=== PATIENT | female | born 1990 | race Caucasian/White ===

== ENCOUNTER 2018-03-06 18:23 | Emergency (ER) | payer BC, OTHER ==
[2018-03-06] MEDS ORDERED: IBUPROFEN 600 MG TAB PO ONE ×2 (19:11→19:12)
[2018-03-06] MEDS ORDERED: ACETAMINOPHEN 500 MG TAB ONE (19:11)
[2018-03-06] MEDS ORDERED: ACETAMINOPHEN 500 MG TAB PO ONE (19:12)
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
[2018-03-06 20:35] VITALS: BP 122/95
[2018-03-06] MEDS ORDERED: LIDOCAINE 4%/MENTHOL 1% PATCH TD ONE ×2 (20:53)
[2018-03-06] MEDS ORDERED: PATCH REMOVAL 1 EA PATCH TD SCH (21:00)
== END 2018-03-06 20:58 | disposition home or self-care (01) ==
DX: S09.90XA Unspecified injury of head, initial encounter (principal); S39.012A Strain of muscle, fascia and tendon of lower back, initial encounter; R93.7 Abnormal findings on diagnostic imaging of other parts of musculoskeletal system; V13.4XXA Pedal cycle driver injured in collision with car, pick-up truck or van in traffic accident, initial encounter; Y93.55 Activity, bike riding; Y92.410 Unspecified street and highway as the place of occurrence of the external cause; M41.9 Scoliosis, unspecified; Q76.49 Other congenital malformations of spine, not associated with scoliosis

== ENCOUNTER → 2018-04-09 | Outpatient (CLI) | payer BC | LOC: FIMAGING 10:57 | PROVIDERS: ATTEND Orthopaedic Surgery | DX: M89.8X8 Other specified disorders of bone, other site (principal) | CPT/HCPCS: 78306; A9503 ==